=== PATIENT | female | born 1975 | race Caucasian/White ===

== ENCOUNTER 2017-11-01 11:31 | Emergency (ER) | payer MEDICAID, OTHER ==
[2017-11-01 11:43] VITALS: BP 120/75
[2017-11-01] MEDS ORDERED: DEXAMETHASONE 10 MG/ML VIAL PO STA (12:13)
--- NOTE | 2017-11-01 12:26 | ED Physician Documentation ---
History of Present Illness - Stated complaint Stated Complaint: SORE THROAT - Chief complaint Chief Complaint: Heent - History obtained from History obtained from: Patient - History of Present Illness Timing: Today Pain level max: 6 Pain level now: 5 - Additonal information Additional information: Patient is a 42-year-old female who presents to the emergency department with a sore throat for the past 2 days. Children are home sick with same. Intermittent subjective fevers. No rhinorrhea or congestion. No cough. Concerned that she may have strep. Worse with swallowing, better with rest Review of Systems Respiratory: denies: Cough GI: denies: Vomiting : denies: Now EGA Skin: denies: Rash PD PAST MEDICAL HISTORY - Past Medical History Past Medical History: No - Past Surgical History Past Surgical History: No - Present Medications Home Medications: Ambulatory Orders Medication Instructions Recorded Confirmed Ibuprofen [Motrin] 800 mg PO Q8H PRN #30 tablet 11/01/17 Penicillin V Potassium 500 mg PO Q6HR #40 tablet 11/01/17 - Allergies Allergies/Adverse Reactions: Allergies Allergy/AdvReac Type Severity Reaction Status Date / Time No Known Drug Allergies Allergy Verified 11/01/17 11:38 - Social History Does the pt smoke?: No Smoking Status: Never smoker PD ED PE NORMAL - Vitals Vital signs reviewed: Yes - General General: Alert and oriented X 3, No acute distress, Well developed/nourished - HEENT HEENT: PERRL, Ears normal, Moist mucous membranes, Other (Moderate posterior oropharyngeal erythema without tonsillar exudates. Uvula midline. No trismus.) - Neck Neck: Supple, no meningeal sign, No bony TTP - Cardiac Cardiac: RRR - Respiratory Respiratory: No respiratory distress, Clear bilaterally - Derm Derm: Warm and dry, No rash - Neuro Neuro: Alert and oriented X 3 Results - Vitals Vitals: Vital Signs - 24 hr 11/01/17 11:37 Temperature 37.4 C Heart Rate 87 Respiratory 18 Rate Blood Pressure 120/75 O2 Saturation 99 Oxygen O2 Source Room air - Labs Labs: Laboratory Tests 11/01/17 11:36 Group A Strep Rapid POSITIVE H PD MEDICAL DECISION MAKING - ED course Complexity details: reviewed results, considered differential, d/w patient ED course: Patient is a 42-year-old female who presents to the emergency department streptococcal pharyngitis. Given dexamethasone here. Will place on antibiotics for home and follow-up closely with her doctor. No peritonsillar or retropharyngeal abscess. She is well-appearing, nontoxic. Afebrile. Patient counseled regarding signs and symptoms for which I believe and urgent re -evaluation would be necessary. Patient with good understanding of and agreement to plan and is comfortable going home at this time This document was made in part using voice recognition software. While efforts are made to proofread this document, sound alike and grammatical errors may occur. Departure - Departure Disposition: 01 Home, Self Care Clinical Impression: Strep pharyngitis Condition: Good Instructions: ED Strep Pharyngitis Conf Follow-Up: Adali Walters MD [Primary Care Provider] - Within 1 week (if not better) Prescriptions: Penicillin V Potassium 500 mg PO Q6HR #40 tablet Ibuprofen [Motrin] 800 mg PO Q8H PRN #30 tablet PRN Reason: PAIN &/OR FEVER Comments: Take all antibiotics until gone. Return if you worsen.
== END 2017-11-01 12:43 | disposition home or self-care (01) ==
LOC: ED 11:31
DX: J02.0 Streptococcal pharyngitis (principal)
CPT/HCPCS: 87430; 99283

== ENCOUNTER 2020-09-01 15:06 | Emergency (ER) | payer OTHER ==
--- NOTE | 2020-09-01 16:05 | ED Physician Documentation ---
PD HPI HEENT - Stated complaint Stated Complaint: FACIAL SWELLING & TINGLING - Chief complaint Chief Complaint: Neuro - History obtained from History obtained from: Patient - History of Present Illness Timing - onset: How many days ago (2) Timing - duration: Days (2) Timing - details: Gradual onset, Still present Location: Left ear (patient had some pain and tingling feeling left ear and behind the ear started couple days ago. Some pain left ear as well. Seen at Urgent Care and Dx with likely ear infection, with pt saying she was told eardrum was discolored. Rx Bactrim and Diclofenac. Took them last evening and again 2 hrs ago.), Other (left face swelling and weakness started about 1/2 hour after taking PO meds. States lip swelling and face. Swelling is decreasing some but having left face weakness. Denies weakness of arms nor legs. Swelling only on left. No VINCENT inhibitors.) Associated symptoms: Facial swelling (today after taking meds, and now weakness of the face.). No: Fever, Congestion Recently seen: Clinic Review of Systems Constitutional: denies: Fever, Chills Ears: reports: Ear pain (left ear and behind the ear). denies: Drainage/discharge Nose: denies: Rhinorrhea / runny nose, Congestion Throat: denies: Sore throat Respiratory: denies: Cough GI: denies: Nausea, Vomiting, Diarrhea Skin: reports: Other (not having skin sensitivity.). denies: Rash, Lesions Neurologic: reports: Focal weakness (just left side of face). denies: Numbness, Difficulty speaking PD PAST MEDICAL HISTORY - Past Medical History Past Medical History: No - Past Surgical History Past Surgical History: No - Present Medications Home Medications: Ambulatory Orders Medication Instructions Recorded Confirmed Cephalexin [Keflex] 500 mg PO TID #18 capsule 09/01/[address] [Voltaren] 75 mg PO BID PRN 09/01/20 09/01/20 Sulfamethox/Trimeth 800/160 1 each PO BID 09/01/20 09/01/20 [Bactrim Ds 800/160] dexAMETHasone [Decadron] 4 mg PO DAILY #5 tablet 09/01/20 - Allergies Allergies/Adverse Reactions: Allergies Allergy/AdvReac Type Severity Reaction Status Date / Time No Known Drug Allergies Allergy Verified 09/01/20 15:13 - Social History Does the pt smoke?: No Smoking Status: Never smoker PD ED PE NORMAL - Vitals Vital signs reviewed: Yes - General General: Alert and oriented X 3, No acute distress, Well developed/nourished - HEENT HEENT: PERRL, EOMI, Moist mucous membranes, Pharynx benign (uvula and pharynx normal, but lips with some edema, mainly left side. There is mild to moderate weakness noted left side of face, most notable around mouth, with mild edema on left cheek. Weakness also of closing eyes and raising eyebrows too though, on left. ), Dentition benign, Other (left TM with some appearance of fluid behind eardrum, but not really red. Canal without redness nor rash. No redness in mastoid nor tenderness to percussion. Skin not sensitive. No rash. ) - Neck Neck: Supple, no meningeal sign, No adenopathy - Abdomen Abdomen: Soft, Non tender - Neuro Neuro: Alert and oriented X 3, No sensory deficit, Normal speech, Other (left facial weakness without numbness, and normal arms and legs.) Results - Vitals Vitals: Vital Signs - 24 hr 09/01/20 09/01/20 15:13 16:08 Temperature 36.6 C Heart Rate 86 66 Respiratory 18 18 Rate Blood Pressure 143/92 H 122/63 O2 Saturation 100 99 Oxygen O2 Source Room air PD MEDICAL DECISION MAKING - ED course Complexity details: re-evaluated patient (she states swelling is decreasing since the worst of it, and facial weakness feels it is improving. Interesting allergic reaction just on left? DOes not take VINCENT inhibitors. ), considered differential (interesting progression of symptoms. Left ear and around ear discomfort for couple days. no rash nor tenderness per se. Now left facial weakness, so consider [place] from viral cause such as shingles, but no rash nor tender. Had swelling lip/ face after meds? allergic reaction with nerve pressure. ), d/w patient Departure - Departure Disposition: 01 Home, Self Care Clinical Impression: Facial nerve palsy, Left facial swelling Allergic drug reaction Qualifiers: Encounter type: initial encounter Qualified Code(s): T78.40XA - Allergy, unspecified, initial encounter Condition: Stable Record reviewed to determine appropriate education?: Yes Prescriptions: dexAMETHasone [Decadron] 4 mg PO DAILY #5 tablet Cephalexin [Keflex] 500 mg PO TID #18 capsule Comments: Stop the sulfa mouth oxazole/trimethoprim antibiotic as well as the diclofenac anti-inflammatory. Your reaction was more likely from the antibiotic but could potentially be from either. Change to cephalexin 3 times a day for 6 more days for the ear infection. Decadron steroid anti-inflammatory daily if the swelling persists. I would anticipate improvement in the left facial weakness as the swelling goes down as is likely pressured or irritated the facial nerve in that area. Recheck if not improved well over the next several days. Recheck also if you develop any rash or worsening of the weakness on the face or other new symptoms. Discharge Date/Time: 09/01/20 17:16
[2020-09-01 16:11] VITALS: BP 122/63
[2020-09-01] MEDS ORDERED: cephALEXin 250 MG CAPSULE PO STA (16:40)
[2020-09-01] MEDS ORDERED: DEXAMETHASONE 10 MG/ML VIAL PO STA (16:40)
[2020-09-01] MEDS ORDERED: CHERRY SYRUP 10 ML UDC PO ONE (16:40)
[2020-09-01] MEDS ORDERED: CETIRIZINE 10 MG TABLET PO STA (16:40)
== END 2020-09-01 17:16 | disposition home or self-care (01) ==
LOC: ED 15:06
DX: G51.0 Bell's palsy (principal); R22.0 Localized swelling, mass and lump, head; T36.8X5A Adverse effect of other systemic antibiotics, initial encounter; T39.395A Adverse effect of other nonsteroidal anti-inflammatory drugs [NSAID], initial encounter; H66.92 Otitis media, unspecified, left ear
CPT/HCPCS: 99282; 99284; A9270

== ENCOUNTER 2020-09-19 17:57 | Outpatient (CLI) | payer OTHER ==
[2020-09-19] MEDS ORDERED: IOVERSOL 320 100 ML VIAL IVP ONE ×2 (18:13→18:34)
--- NOTE | 2020-09-20 09:47 | CT Report ---
PROCEDURE: HEAD W/WO INDICATIONS: LT CERVANTES'S PALSY, CHANGES IN VISION TECHNIQUE: 4.5 mm thick angled axial sections acquired from the foramen magnum to the vertex before and after th e administration of intravenous contrast. For radiation dose reduction, the following was used: aut omated exposure control, adjustment of mA and/or kV according to patient size. CONTRAST: IV CONTRAST: Optiray 320 ml: 100 PO CONTRAST: *NO PO CONTRAST COMPARISON: None FINDINGS: Image quality: Excellent. CSF Spaces: Basal cisterns are patent. No extra-axial fluid collections. Ventricles are normal in size and shape. Brain: No midline shift. No intracranial bleeds or masses. No abnormal intracranial enhancement. Hill-white interface appears normal. Skull and face: Calvarium and visualized facial bones appear intact, without suspicious lesions. Sinuses: Visualized sinuses and mastoids are clear. IMPRESSION: Unremarkable head CT with and without contrast. No evidence acute stroke, hemorrhage, or mass. Reviewed by: Joselito Pisano MD on 09/20/2020 9:46 AM [facility] Approved by: Joselito Pisano MD on 09/20/2020 9:46 AM PST Station ID: [id number]
== END 2020-09-19 17:58 | disposition home or self-care (01) ==
LOC: DI 17:57
PROVIDERS: ATTEND Family Medicine
DX: H53.9 Unspecified visual disturbance (principal); G51.0 Bell's palsy
CPT/HCPCS: 70470; Q9967

== ENCOUNTER 2021-01-11 15:54 | Emergency (ER) | payer OTHER ==
[2021-01-11 16:04] VITALS: BP 122/83
--- NOTE | 2021-01-11 16:06 | ED Physician Documentation ---
PD HPI CHEST PAIN - Stated complaint Stated Complaint: BACK/CP - Chief complaint Chief Complaint: Cardiac - History obtained from History obtained from: Patient - Additional information Additional information: 45-year-old woman with history of asthma has had 2 weeks of neck discomfort like a pressure like someone pushing down on it and has only had a week of constant upper chest discomfort which is better with exertion and walking around and worse at rest. Not associated with shortness of breath. No pedal edema but she does note some soreness in the anterolateral right leg distally. "Like a brui se." No personal history of DVT, PE, or heart problems. Her mom has some heart problems, not ischemic coronary disease but potentially some arrhythmias. Review of Systems Ten Systems: 10 systems reviewed and negative Constitutional: denies: Fever, Chills Cardiac: denies: Palpitations Respiratory: denies: Dyspnea PD PAST MEDICAL HISTORY - Past Medical History Respiratory: Asthma - Past Surgical History Past Surgical History: No /[employer]: section - Present Medications Home Medications: Ambulatory Orders Medication Instructions Recorded Confirmed Cyclobenzaprine [Flexeril] 10 mg PO TID PRN #20 tablet 01/11/21 - Allergies Allergies/Adverse Reactions: Allergies Allergy/AdvReac Type Severity Reaction Status Date / Time cephalexin [From Keflex] Allergy Anaphylaxis Verified 01/11/21 16:06 sulfamethoxazole Allergy Rash Verified 01/11/21 16:05 [From Bactrim] trimethoprim [From Bactrim] Allergy Rash Verified 01/11/21 16:05 - Social History Does the pt smoke?: No Smoking Status: Never smoker Does the pt drink ETOH?: No Does the pt have substance abuse?: No - Immunizations Immunizations are current?: Yes PD ED PE NORMAL - Vitals Vital signs reviewed: Yes - General General: Alert and oriented X 3, No acute distress - HEENT HEENT: PERRL, EOMI - Neck Neck: Supple, no meningeal sign, No bony TTP - Cardiac Cardiac: RRR, No murmur - Respiratory Respiratory: No respiratory distress, Clear bilaterally - Abdomen Abdomen: Normal bowel sounds, Soft, Non tender - Back Back: No CVA TTP, No spinal TTP - Derm Derm: Normal color, Warm and dry - Extremities Extremities: No edema, No calf tenderness / cord - Neuro Neuro: Alert and oriented X 3, Normal speech Results - Vitals Vitals: Vital Signs - 24 hr 01/11/21 15:58 Temperature 36.1 C L Heart Rate 81 Respiratory 20 Rate Blood Pressure 122/83 H O2 Saturation 99 Oxygen O2 Source Room air - EKG (time done) 1600 Rate: Rate (enter#) (65) Rhythm: NSR Hanna: Normal Intervals: Normal OH QRS: Normal Ischemia: ST elevation c/w repol. No: ST elevation c/w ischemia, ST depression - Labs Labs: Laboratory Tests 01/11/21 01/11/21 01/11/21 16:14 16:14 16:14 WBC 7.8 RBC 4.57 Hgb 13.5 Hct 39.9 MCV 87.3 MCH 29.5 MCHC 33.8 RDW 12.2 Plt Count 260 MPV 9.6 Neut # (Auto) 4.9 Lymph # (Auto) 2.2 Creek # (Auto) 0.6 Eos # (Auto) 0.1 Baso # (Auto) 0.0 Absolute Nucleated RBC 0.00 Nucleated RBC % 0.0 D-Dimer < 200.0 L Sodium 134 L Potassium 3.7 Chloride 100 L Carbon Dioxide 24 Anion Gap 10.0 BUN 10 Creatinine 0.6 Estimated GFR (MDRD) 109 Glucose 118 H Calcium 8.8 Total Bilirubin 0.8 AST 28 ALT 32 Alkaline Phosphatase 51 Troponin I High Sens Total Protein 6.8 Albumin 4.3 Globulin 2.5 Albumin/Globulin Ratio 1.7 Lipase 26 01/11/21 16:14 WBC RBC Hgb Hct MCV MCH MCHC RDW Plt Count MPV Neut # (Auto) Lymph # (Auto) Creek # (Auto) Eos # (Auto) Baso # (Auto) Absolute Nucleated RBC Nucleated RBC % D-Dimer Sodium Potassium Chloride Carbon Dioxide Anion Gap BUN Creatinine Estimated GFR (MDRD) Glucose Calcium Total Bilirubin AST ALT Alkaline Phosphatase Troponin I High Sens < 2.3 L Total Protein Albumin Globulin Albumin/Globulin Ratio Lipase PD MEDICAL DECISION MAKING - ED course ED course: Heart score 1 with negative troponin and D-dimer. Departure - Departure Disposition: 01 Home, Self Care Clinical Impression: Atypical chest pain Condition: Good Record reviewed to determine appropriate education?: Yes Instructions: ED Chest Pain Atypical Unkn Cause Prescriptions: Cyclobenzaprine [Flexeril] 10 mg PO TID PRN #20 tablet PRN Reason: Spasms Comments: Call your doctor to arrange a follow-up appointment, make the next available appointment. In the interim, return anytime if worse or if new symptoms develop.
--- OUTSIDE RECORDS SUMMARY | 2021-01-11 16:21 | EXTERNAL MEDICAL SUMMARY RPT | Continuity of Care Document ---
:1975 Demographics Phone Unavailable Preferred Language Unknown Marital Status Unknown Orthodoxy Affiliation Unknown Race Unknown Ethnic Group Unknown Author Organization [facility] Address [address] [place] [address] Phone Social History date description facility [phone]
[2021-01-11 16:22] LABS: BASOPHILS % (AUTO) 0.4 %; EOSINOPHILS # (AUTO) 0.1 10^3/uL (0.0-0.7); EOSINOPHILS % (AUTO) 1.8 %; HCT - HEMATOCRIT 39.9 % (37.0-47.0); HGB - HEMOGLOBIN 13.5 g/dL (12.0-16.0); LYMPHOCYTES # (AUTO) 2.2 10^3/uL (1.5-3.5); LYMPHOCYTES % (AUTO) 27.7 %; MEAN CORPUSCULAR HEMOGLOBIN 29.5 pg (27.0-31.0); MEAN CORPUSCULAR HGB CONC 33.8 g/dL (32.0-36.0); MEAN CORPUSCULAR VOLUME 87.3 fL (81.0-99.0); MEAN PLATELET VOLUME 9.6 fL (7.9-10.8); MONOCYTES # (AUTO) 0.6 10^3/uL (0.0-1.0); MONOCYTES % (AUTO) 7.2 %; NEUTROPHILS # (AUTO) 4.9 10^3/uL (1.5-6.6); NEUTROPHILS % (AUTO) 62.8 %; PLT - PLATELET COUNT 260 10^3/uL (130-450); RED BLOOD COUNT 4.57 10^6/uL (4.20-5.40); RED CELL DISTRIBUTION WIDTH 12.2 % (12.0-15.0); WHITE BLOOD COUNT 7.8 x10^3/uL (4.8-10.8)
[2021-01-11 16:37] LABS: ALBUMIN 4.3 g/dL (3.2-5.5); ALBUMIN/GLOBULIN RATIO 1.7 (1.0-2.2); BILIRUBIN,TOTAL 0.8 mg/dL (0.2-1.0); CALCIUM 8.8 mg/dL (8.5-10.3); CREATININE 0.6 mg/dL (0.4-1.0); POTASSIUM 3.7 mmol/L (3.5-5.0); TOTAL PROTEIN 6.8 g/dL (6.7-8.2)
--- NOTE | 2021-01-11 16:38 | XRAY Report ---
PROCEDURE: Chest 1 View X-Ray INDICATIONS: Chest Pain TECHNIQUE: One view of the chest was acquired. COMPARISON: None FINDINGS: Surgical changes and devices: None. Lungs and pleura: No pleural effusions or pneumothorax. Lungs are clear. Mediastinum: Mediastinal contours appear normal. Heart size is normal. Bones and chest wall: No suspicious bony lesions. Overlying soft tissues appear unremarkable. IMPRESSION: No acute cardiopulmonary process demonstrated radiographically. Reviewed by: Edis Whyte MD on 01/11/2021 4:37 PM PDT Approved by: Edis Whyte MD on 01/11/2021 4:37 PM PDT Station ID: [id number]
== END 2021-01-11 17:06 | disposition home or self-care (01) ==
LOC: ED 15:54
DX: R07.89 Other chest pain (principal)
CPT/HCPCS: 36415; 80053; 83690; 84484; 85025; 85379; 93005; 99284

== ENCOUNTER 2021-09-02 18:58 | Outpatient (CLI) | payer OTHER ==
--- NOTE | 2021-09-03 08:32 | Ultrasound Report ---
PROCEDURE: Pelvic Complete INDICATIONS: PCOS TECHNIQUE: Real-time transabdominal scanning was performed of the pelvic organs, with image documentation. COMPARISON: None. FINDINGS: Uterus: Uterus is enlarged measuring 4.2 x 5.6 x 10.0 cm. Diffusely heterogenous and coarsened uteri ne echotexture. No discrete uterine mass. Normal thickness of the endometrial stripe complex measuri ng approximately 7 mm in double layer thickness. Ovaries: The right ovary is normal in size measuring 2.2 x 2.5 x 2.8 cm. No ovarian or adnexal mass. No follicles are seen in the right ovary. The left ovary measures 2.0 x 3.6 x 3.4 cm. There is 1.1 c m anechoic focus in the peripheral aspect of the right ovary consistent with a physiologic/follicular cyst. There is also an nonspecific echogenic focus in the left ovary measuring 0.8 cm. Other: No free pelvic fluid. IMPRESSION: Enlarged heterogenous uterus. Findings may represent adenomyosis. No findings of PCL as. Nonspecific subcentimeter focus in the left ovary may represent a cyst although follow up in 6 weeks recommended to document stability/resolution. Reviewed by: Edis Whyte MD on 09/03/2021 8:31 AM PST Approved by: Edis Whyte MD on 09/03/2021 8:31 AM PST Station ID: [id number]
== END 2021-09-02 18:59 | disposition home or self-care (01) ==
LOC: DI 18:58
PROVIDERS: ATTEND Family Medicine
DX: N85.2 Hypertrophy of uterus (principal); N83.9 Noninflammatory disorder of ovary, fallopian tube and broad ligament, unspecified

== ENCOUNTER 2023-08-19 10:00 | Outpatient (CLI) | payer OTHER ==
--- NOTE | 2023-08-19 15:08 | XRAY Report ---
PROCEDURE: Foot 3 View LT INDICATIONS: LEFT FOOT PAIN TECHNIQUE: 3 views of the foot were acquired. COMPARISON: None. FINDINGS: Bones: No fractures or dislocations. No suspicious bony lesions. Tiny incidental plantar calcanea l spur. Soft tissues: No suspicious soft tissue calcifications or masses. IMPRESSION: No acute bony abnormality. Tiny calcaneal spur. Correlate clinically. Reviewed by: Shira Suarez MD on 08/19/2023 3:07 PM PST Approved by: Shira Suarez MD on 08/19/2023 3:07 PM PST Station ID: [id number]
== END 2023-08-19 10:15 | disposition home or self-care (01) ==
LOC: DI.N 10:00
PROVIDERS: ATTEND Family Medicine
DX: M77.32 Calcaneal spur, left foot (principal)